=== PATIENT | female | born 1940 | race Caucasian/White ===

== ENCOUNTER 2025-04-25 11:45 | Outpatient (CLI) | payer MEDICARE, SELFPAY ==
--- NOTE | 2025-04-25 13:18 | P.ANES_ITS ---
Anesthesia Charges Start Date/Time Anesthesia Start Date: 04/25/25 Anesthesia Start Time: 12:50 Stop Date/Time Anesthesia Stop Date: 04/25/25 Anesthesia Stop Time: 13:14 Summary Extremes of Age - Over 70 or under 1: FORMULA CLERK Coding CPT Codes CPT Codes: ANES LWR INTST SCR COLSC - 18397 ([id number]) P3 - PATIENT W/SEVERE SYS DISEASE, QZ - FORMULA CLERK SVC W/O LOOM OPERATOR BY Additional Codes: Summary - Extremes of Age - Over 70 or under 1: FORMULA CLERK ([id number])
--- NOTE | 2025-04-25 13:18 | W.ANESCHARGE ---
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
== END 2025-04-25 11:46 | disposition home or self-care (01) ==
LOC: OP CLINIC 11:46
PROVIDERS: PCP Family Medicine; Visit Provider Internal Medicine
DX: Z12.11 Encounter for screening for malignant neoplasm of colon (principal); Z86.0100 Personal history of colon polyps, unspecified; K57.30 Diverticulosis of large intestine without perforation or abscess without bleeding
CPT/HCPCS: 00812; 45378; 99100; J2704

== ENCOUNTER 2025-05-06 10:38 | Emergency (ER) | payer MEDICARE, SELFPAY ==
--- OUTSIDE RECORDS SUMMARY | 2025-05-06 10:41 | XMS_ITS | Clinical Summary ---
Author Organization [employer] [facility] Address [address] [place] [id number] Care Team Providers Care Oracle Bpm Developer Name Role Phone KingCorrieRuss W Unavailable Bessie Braun DO Primary Care Provider [phone] Allergies No known active allergies Medications MULTIVITAMIN TAB take 1 tablet by oral route once daily with food 0 08/22/19 08 Active ZINC 50 MG TAB 2x per week 0 11/01/19 08 Active VITAMIN D 1,000 UNIT CAP Once daily 0 11/07/19 09 Active calcium carbonate (Calcium 500) 500 mg calcium (1,250 mg) tablet Take 1 Tablet (500 mg) by mouth 3 times daily with meals. 0 01/29/20 22 Active acetaminophen (TYLENOL) 325 mg tablet Take 2 Tablets (650 mg) by mouth three times daily. Max acetaminophen dose: 4000mg in 24 hrs. 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 90 Tablet 1 11/20/19 25 Active traZODone 50 mg tabletIndications :Insomnia, unspecified type TAKE ONE TABLET BY MOUTH ONCE DAILY AT BEDTIME NEEDED FOR SLEEP 90 Tablet 2 11/22/19 25 Active omeprazole 20 mg Delayed-Release capsuleIndication s:Gastric reflux Take 1 Capsule (20 mg) by mouth once daily before a meal. Please fill at patient's request. 90 Capsule 2 11/22/19 25 Active clobetasol 0.05 % ointmentIndicatio ns:Lichen sclerosus of vulva Apply peasized amount to labia nightly 60 g 1 12/06/19 Active sertraline 100 mg tabletIndications :Adjustment disorder with depressed mood Take 1.5 Tablets (150 mg) by mouth once daily. 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 Seo History of squamous cell carcinoma 03/30/2021 History of aortic regurgitation 10/01/2020 Overview (10/01/2020): Mild-mod 2017 Erosive gastropathy 10/01/2020 Overview (10/01/2020): Per records from hospital. 2019. Nonbleeding erosive gastropathy Not to use any NSAIDs. Leukopenia 10/01/2020 Overview (07/28/2021): Noted since at least 2018, possibly longer. See 09/2020 office visit Saw hematology 2020 and recommend CBC [id number]. Thought from lisinopril but noted okay to continue. 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 05/10/2012 Vaginal atrophy 03/31/2011 ACP (advance care planning) 03/31/2011 Overview (05/14/2013): discussed today Referred 05/10/2012 Need to address at next office visit. 05/14/2013 Other seborrheic keratosis 03/31/2011 Overview (12/01/2011): 1+ cm lesion right lateral chest wall Personal history of colonic polyps 04/28/2010 Overview (10/01/2020): Colonoscopy 04/2010 normal repeat in 5 years 2016 no polyps Unspecified essential hypertension 10/22/2009 Patellofemoral Pain Syndrome 02/11/2009 Overview (02/11/2009): right Dysphagia, unspecified(787.20) 02/11/2009 Heart murmur 06/18/2008 Overview (06/18/2008): Mild Aortic Insufficiency on Echo 05/2008 Routine general medical exam ination at a health care facility 11/01/2007 Overview (03/31/2011): Nuclear Stress Test negative 2009 Adjustment disorder with depressed mood 11/01/19 08 Mixed hyperlipidemia 11/01/2007 Impaired fasting glucose 11/01/2007 Backache, unspecified 08/22/2007 Overview (11/06/2008): Severe kyphoscoliosis Dyspepsia and other specifie d disorders of function of stomach 08/22/2007 Overview (07/29/2009): EGD 02/2009 reflux improved with Zantac PM Osteoporosis, unspecified 08/22/2007 Overview (10/01/2020): 04/15 Received Reclast at [facility] 06/2011. Again fall 2011 Reclast again fall 2012 Per hospital records: Reclast infusion June 2012, July 2013, Fosamax restarted August 2014, improved to osteopenia by DEXA August 2015. 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 Overview (08/22/2007): with GE reflux Resolved Problems Problem Noted Date Diagnosed Date Resolved Date Headache(784.0) 09/23/2009 10/22/2009 Encounters Date Type Department Care Team Description 04/25/2025 Orders Only [facility] Scanner 1 scan: (1-Ord) [place] 04/25/2025 Orders Only [facility] Scanner 1 scan: (1-Ord) [facility] 03/21/2025 11:40 AM CDT Office Visit [facility] [address] [place] [address] Bessie Braun DO Lump (Umbilical hernia many years, growing); Screening (colonoscopy) 03/20/2025 Travel from Last 3 Months Immunizations Immunization Administration Dates Next Due COVID-19 VACCINE SPIKEVAX (M ODERNA 50MCG/0.5ML) 12YO+ PFS 08/06/2024,09/28/2023 COVID-19 vaccine (Moderna 100mcg/0.5mL) PF, MDV 09/18/2020,08/21/2020 Influenza A (H1N1), Inactivated 07/29/2009 Influenza A (H1N1), Inactiva patricio (Age >=3 Years) 07/29/2009 Influenza, High-dose Inactivated 024,04/10/2020,04/28/2018,04/29,04/22/2016,04/28/2015,03/28/2014 Influenza, High-dose Quadriv alent Inactivated 04/28/2022,05/01/2020 Influenza, IIV3 (Age 6-35 mos) 03/31/2011 Influenza, IIV3 (Age >=3 years) 05/14/20 13,05/10/2012,03/31/2011,04/06,05/06/2009,05/23/2008,05/29/2007 ,05/25/2006,06/23/2005,05/21/2003,05/11 Influenza, Inactivated AIIV4 (Age 65+ Years) Preserv Free 03/24/2023,03/30/2021 Influenza, Inactivated IIV3 (Age 65+ Years) Preserv Free 03/21/2025 Pneumococcal Poly,23-Valent (Pneumovax) 11/01/2007 Pneumococcal conj 13-Valent (Prevnar 13) 08/19/2014 RSV, Recombinant ADJ Reconst ituted (Arexvy 120MCG/0.5mL) 08/21/2024 Td (Age >=7 Years) 10/20/2005 Tdap 05/11/2023,03/31/2011 Zoster (Shingrix-RZV, recombinant) 02/24/2019, Zoster (Zostavax-ZVL, live) 11/03/2006 Family History Medical History Relation Name Comments Blood Disease Father Stanley ?CLL? Diabetes Maternal Grandfather Other Mother Bridget ALS Cancer-breast Paternal Aunt 2 Aunts Anesthesia Problem No Family History Cancer-ovarian No Family History Relation Name Status Comments Brother Stone Alive Father Stanley (Age 92) Hip Fx Maternal Grandfather Mother Bridget (Age 86) ALS Paternal Aunt Social History Tobacco Use Types Packs/Day Years Used Date Smoking Tobacco: Never Smokeless Tobacco: Never Tobacco Cessation:Counseling Given: Yes Alcohol Use Standard Drinks/Week Comments Not Currently 0 (1 standard drink = 0.6 oz pur e alcohol) glass wine monthly PHQ-2 Answer Date Recorded PHQ-2 TOTAL SCORE 6 01/23/2025 Social Connections Answer Date Recorded Do you often feel lonely or isolated from those around you? 0 08/06/2024 Financial Resource Strain Answer Date R ecorded Difficulty of Paying Living Expenses 3 08/06/2024 Difficulty of Paying Living Expenses Not on file 08/06/2024 Food Insecurity Answer Date Recorded Do you worry your food will run out before you are able to buy more? 1 08/06/2024 Transportation Needs Answer Date Record ed Does lack of transportation keep you from medica l appointments? 1 08/06/2024 Does lack of transportation keep you from work, meetings or getting things that you need? 1 08/06/2024 Housing Stability Answer Date Recorded What is your housing situation today? 1 08/06/2024 Utilities Answer Date Recorded Do you have trouble paying f or utilities (for example, heat, electricity, water, phone)? 1 08/06/2024 Comments No Sex and Gender Information Value Date Recorded Sex Assigned at Female 03/29/2021 7:20 PM CDT Legal Sex Female 6:25 AM HELP DESK MANAGER Gender Identity Not on file Sexual Orientation Not on file Occupation Industry Job Start Date Job End Date Retired Not on file Not on file Not on file Obstetrics History Para Term AB IAB SAB Ectopic Multiple Livin g Live Births 3 3 3 Date Outcome GA Total Labor Labor/2nd/3rd Weight Sex Type Anes PTL Evi A1 A5 Name Clin Para Para Para Last Filed Vital Signs Vital Sign Reading Time Taken Comments Blood Pressure 113/71 03/21/2025 11:54 AM CDT Pulse 73 03/21/2025 11:54 AM CDT Temperature 36.8 C (98.3 F) 11/28/2024 2:29 PM CDT Respiratory Rate 18 02/08/2022 12:02 PM CDT Oxygen Saturation 96% 03/21/2025 11:54 AM CDT Inhaled Oxygen Concentration - - Weight 70.8 kg (156 lb) 03/21/2025 11:54 AM CDT Height 153 cm (5' 0.24) 08/06/2024 8:32 AM HELP DESK MANAGER Body Mass Index 30.23 08/06/2024 8:32 AM HELP DESK MANAGER Plan of Treatment Upcoming Encounters Date Type Department Care Team (Late st Contact Info) Description 05/20/2025 11:40 AM HELP DESK MANAGER Office Visit [facility] [address] [place] [address] Bessie Braun DO [address] [place] [address] Health Maintenance Due Date Last Done Comments BMI (ht and wt on same day) for age 18+ 08/06/2025 08/06/2024, 08/04/2023, 08/03/2022, Additional history exists Medicare Wellness for age 65+ 08/07/2025 08/06/2024, 08/04/2023, 08/03/2022, Additional history exists Depression screening for age 12+ 01/23/2026 01/23/2025, 08/06/2024, 08/06/2023, Additional history exists Tetanus booster 05/11/2033 05/11/2023, 03/12, 10/20/2005 Pneumococcal series for age 50+ Completed 08/19/2014, 11/01/2007 Zoster (shingles) series for age 50+ Completed 02/24/2019, 12/20/2018, 11/03/2006 RSV vaccine for adults or Completed 08/21/2024 DEXA/DXA scan for age 65+ Completed 2024, 10/04/2022, 10/01/2020, Additional history exists Influenza Vaccine Completed 03/21/2025, , 03/24/2023, Additional history exists Hepatitis B series for 19+ Aged Out N o longer eligible based on patient's age to complete this topic Procedures Procedure Name Priority Date/Time Associated Diagnosis Comments SCAN-COLONOSCOPY 04/25/2025 12:0 0 AM CDT SCAN-COLONOSCOPY 04/25/2025 12:0 0 AM CDT XR DXA BONE DENSITY 2 SITES AXIAL Routine 10/05/2024 9:12 AM CDT Osteoporosis, unspecified osteoporosis type, unspecified pathological fracture presence from Last 3 Months or Most Recently Relevant to Health Maintenance Results * SCAN-COLONOSCOPY (04/25/2025 12:00 AM CDT) us Scanner OTHER Final Result * SCAN-COLONOSCOPY (04/25/2025 12:00 AM CDT) us Scanner OTHER Final Result * (ABNORMAL) XR DXA BONE DENSITY 2 SITES AXIAL (10/05/2024 9:12 AM CDT) Anatomical Region Laterality Modality Spine, HIPS, HIPL, HIPR Other Impressions 10/05/2024 4:00 PM CDT Osteopenia. RECOMMENDATIONS: The National Osteoporosis Foundation recommends pharmacologic treatment for patients with T-scores of -2.5 or less, patients with prior history of fragility fractures, or patients with 10-year probability of greater than 3% at hips or greater than 20% of suffering major osteoporotic fractures. Recommend continued optimization of calcium and vitamin D intake through dietary means and/or supplementation and regular exercise. Consider pharmacologic therapy for osteopenia with increased fracture risk. Follow-up bone density reading in 2 years if therapy initiated to assess therapeutic efficacy. Montserrat Carter PA-C [facility] 10/05/2024 Narrative 10/05/2024 4:00 PM CDT For Patients: Results are automatically released to your [facility] ([email or web address]) account once available, in compliance with federal regulations. This means that you may see your results before your provider has had a chance to review them. Please allow 2-3 business days for your provider to comment on the results. XR DXA Bone Mineral Density (BMD) EXAM LOCATION: [address] [address] PATIENT NAME: Edel Arita DATE OF : 1940 EXAM DATE: 10/05/2024 REQUESTING PROVIDER: Bessie Braun DO GENDER AT : female HEIGHT: 5' 0.24 (08/06/2024) WEIGHT: 154 lb (08/06/2024) MENOPAUSAL STATUS: Postmenopausal RACE/ETHNICITY: White RISK FACTORS: Family History of Hip Fracture (parental), History of Fragility Fracture (at a major site), and White Race CURRENT MEDICATION FOR BONE LOSS: NONE INDICATION: Osteoporosis, unspecified osteoporosis type, unspecified pathological fracture presence COMPARISON DATE(S): 2020 for spine and 2022 for hips DXA scans are compared to prior studies for a patient only when the two (or more) studies were performed on the same scanner. It is not possible to compare data generated on one scanner to data from another because there are not standards in DXA equipment. This applies even if the two scanners are made by the same stockroom attendant. PROCEDURE: Dual-energy x-ray absorptiometry performed with routine technique. Reporting is completed in the form of a T-score. The T-score represents the standard deviation from peak bone mass based on young healthy adult. A Z-score is used for diagnosis in premenopausal women, and for men under the age of 50. FINDINGS: RESULT LUMBAR SPINE L1 - L4 BMD: 1.172 g/cm2 T-Score: - 0.2 Z-Score: + 1.5 Change from prior in 2020: Increase 5.0%. RESULTS FEMUR Left femoral neck BMD: 0.751 g/cm2 T-Score: - 2.1 Z-Score: + 0.1 Change from prior in 2022: Increase 3.9%. Right femoral neck BMD: 0.805 g/cm2 T-Score: - 1.7 Z-Score: + 0.5 Change from prior in 2022: Decrease 0.6%. Left hip BMD: 0.819 g/cm2 T-Score: - 1.5 Z-Score: + 0.5 Change from prior in 2022: Increase 4.1%. Right hip BMD: 0.896 g/cm2 T-Score: - 0.9 Z-Score: + 1.1 Change from prior in 2022: Increase 1.6%. WHO criteria: Normal: T-score at or above -1 SD Osteopenia: T-score between -1.1 and -2.4 SD Osteoporosis: T-score at or below -2.5 SD FRAX RISK CALCULATION (USED FOR OSTEOPENIA ONLY): 10-year probability of major osteoporotic fracture: 38.5%. 10-year probability of hip fracture: 24.7%. 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
--- OUTSIDE RECORDS SUMMARY | 2025-05-06 10:41 | XMS_ITS | Clinical Summary ---
Author Organization [facility] Address [address] [place] [address] Care Team Providers Care Trace Evidence Technician Name Role Phone Unassigned, Provider Primary Care Provider Unava ilable Source Comments You are receiving this document as you are listed as the primary care provider,follow-up provider, or the patient has been referred to you for consultation.This is in compliance with the Medicare and[facility] EHR Incentive Program,which states Providers who transition their patient to another setting of careor provider of care or refers their patient to another provider of care shouldprovide summary care record for each transition of care or referral. [facility] Allergies No known active allergies Medications No known medications Active Problems No known active problems Social History Tobacco Use Types Packs/Day Years Used Date Smoking Tobacco: Never Smokeless Tobacco: Never Comments Unknown Sex and Gender Information Value Date Recorded Sex Assigned at Not on file Legal Sex Female 4:45 AM CDT Gender Identity Not on file Sexual Orientation Not on file Plan of Treatment Health Maintenance Due Date Last Done Comments Adult Preventive Visit 1960 DTaP/Tdap/Td Vaccine (1 - Tdap) 1961 Pneumococcal Vaccine 50+ Yrs (1 of 1 - PCV) 1992 Zoster/Shingles Vaccine (1 of 2) 1992 Dexa 10/20/2007 RSV Vaccine (1 - 1-dose 75+ series) 2017 COVID-19 Vaccine ( - 2023-2 5 season) 2025 Influenza Vaccine (#1) 2025 HepA Vaccine Aged Out No longer eligi ble based on patient's age to complete this topic HepB Vaccine Aged Out No longer eligi ble based on patient's age to complete this topic Hib Vaccine Aged Out No longer eligi ble based on patient's age to complete this topic IPV (Polio) Vaccine Aged Out No longe r eligible based on patient's age to complete this topic MCV4 Vaccine Aged Out No longer eligi ble based on patient's age to complete this topic Meningococcal B Vaccine Aged Out No l onger eligible based on patient's age to complete this topic Care Teams Trace Evidence Technician Relationship Specialty Start Date End Date Unassigned, Provider [address] [place] [address] PCP - General 07/28/01
--- OUTSIDE RECORDS SUMMARY | 2025-05-06 10:41 | XMS_ITS | Clinical Summary ---
Author Organization [facility] Address [address] [place] [address] Care Team Providers Care Lens Maker Name Role Phone Unavailable Primary Care Provider Unavailabl e Source Comments Patient records contain information from all sites at [facility]. For routine questions regarding patient records, call [phone] during business hours, M-F 8:00 AM - 5:00 PM Central Time. Record requests for emergency care only can be directed to [phone] at any time.[facility] Allergies No known active allergies Medications multivitamin tablet Take 1 tablet by mouth every morning. 08/22/2007 Active omeprazole (PriLOSEC) 20 mg capsule Take 20 mg by mouth every morning. 05/14/2013 Active sertraline (ZOLOFT) 100 mg tablet Take 1 tablet by mouth every morning. 09/27/2017 Active traZODone (DESYREL) 50 mg tablet Take 25-50 mg by mouth as needed. 05/14/2013 Active zinc 50 mg tablet Take 1 tablet by mouth 2 (two) times a week. 11/01/2007 Active acetaminophen (TYLENOL) 500 mg tablet Take 1,000 mg by mouth every 6 (six) hours as needed for pain. 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 Hypertension 10/25/2017 Family History Medical History Relation Name Comments Gestational diabetes Daughter 1 Santa Martins Gestational diabetes Daughter 2 Leas Helms Gestational diabetes Daughter 3 Mlchelle Bumpus Breast cancer (in one breast) Father's Sister 1 Corry Hood Breast cancer (in one breast) Father's Sister 2 Luiz Zuniga Relation Name Status Comments Daughter 1 [place]ins Alive Daughter 2 Lesa Helms Alive Daughter 3 Winifredle Bumpus Alive Father's Sister 1 Corry Hood Alive Father's Sister 2 Vanessa Zuniga Alive Social History Tobacco Use Types Packs/Day Years Used Date Smoking Tobacco: Never Smokeless Tobacco: Never Alcohol Use Standard Drinks/Week Comments Not Currently 0 (1 standard drink = 0.6 oz pur e alcohol) 2 glasses of wine a month [facility] Utilities Answer Date Recorded In the past 12 months has e [email or web address], gas, oil, or water [employer] threatened to shut off services in your home? No 10/18/2024 Hunger Vital Sign Answer Date Recorded Within the past 12 months, y ou worried that your food would run out before you got the money to buy more. Never true 10/19/19 25 Within the past 12 months, t he food you bought just didn't last and you didn't have money to get more. Never true 10/18/2024 PRAPARE - Transportation Answer Date Re corded In the past 12 months, has l ack of transportation kept you from medical appointments or from getting medications? No 10/09 In the past 12 months, has l ack of transportation kept you from meetings, work, or from getting things needed for daily living? No 10/18/2024 Housing Stability Answer Date Recorded What is your living situation today? I have a [facility] place to live 10/18/2024 Education Answer Date Recorded What is the highest level of school you have completed or the highest degree you have received? 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 Pulse 73 10/31/2017 11:30 AM CDT Value from [employer]. Temperature - - Respiratory Rate 16 10/31/2017 8:25 AM CDT Value from [employer]. Oxygen Saturation - - Inhaled Oxygen Concentration - - Weight 69.6 kg (153 lb 7 oz) 10/09/2020 10:55 AM CDT Height 154.8 cm (5' 0.95) 10/09/2020 1 0:55 AM CDT Body Mass Index 29.04 10/09/2020 10:55 AM CDT Plan of Treatment Health Maintenance Due Date Last Done Comments Office Visit for Blood Pressure Check / Re-check 1940 Depression Screening (Annual PHQ-2) 07/11/2024 Fall Risk Screen (Annual) 07/11/2024 Potassium Level 08/04/2024 08/04/2023, 05/0 11/2022, 08/03/2022, Additional history exists Sodium Level 08/04/2024 08/04/2023, 07/12, 07/28/2021 Creatinine Level (Kidney Function Test) 02/15/2025 02/16/2024, 08/04/2023, 11/12/2022, Additional history exists COVID-19 Vaccine ( season) 2025 08/06/2024, 04/02/2024, 09/28/2023, Additional history exists Influenza Vaccine (#1) 2025 , 03/24/2023, 04/28/2022, Additional history exists DTaP,Tdap,and Td Vaccines (3 - Td or Tdap) 05/11/2033 05/11/2023, 03/31/2011, 10/20/2005 Pneumococcal vaccine (50+ years) Completed 08/19/2014, 11/01/2007 Zoster Vaccines Completed 02/24/2019, 12/09, 11/03/2006 RSV vaccine - (32-36 weeks) or 50+ years Completed 08/21/2024 IPV Vaccines Aged Out No longer eligi ble based on patient's age to complete this topic Medical Devices Implanted Type Area Ornamental Iron Worker Device Identifier Shelf Expiration Date Model / Serial / Lot Conversions - Default Historical Implant Device Implanted:2017 (Quantity not on file) Hardware e.g. pins/screws/ rods Description:Device Status Te xt - Hardware. Left Ankle less than 1 year s/p. Pin Thompson Smooth Single End 1 8 - Christiansen [id number] Implanted:Qty: 1 on 10/28/2017 Hardware e.g. pins/screws/ rods Latisha Description:Device Manufactu rer - [place].. Device Status Text - [id number]. Self Tap-Screw 4.5 X 54 - Christiansen [id number] Implanted:Qty: 1 on 10/28/2017 Hardware e.g. pins/screws/ rods Depuy Synthes Description:Device Manufactu rer - Synthes. Device Status Text - [id number]. Standard-Screw Can 16 6.5x 30 - Christiansen [id number] Implanted:Qty: 1 on 10/28/2017 Hardware e.g. pins/screws/ rods Depuy Synthes Description:Device Manufactu rer - Synthes. Device Status Text - [id number]. Standard-Screw Can 16 6.5x 35 - Christiansen [id number] Implanted:Qty: 1 on 10/28/2017 Hardware e.g. pins/screws/ rods Depuy Synthes Description:Device Manufactu rer - Synthes. Device Status Text - [id number]. Standard-Screw Can 16 6.5x 40 - Christiansen [id number] Implanted:Qty: 2 on 10/28/2017 Hardware e.g. pins/screws/ rods Depuy Synthes Description:Device Manufactu rer - Synthes. Device Status Text - [id number]. Syn Washer Canc Screw 6.5 - Christiansen [id number] Implanted:Qty: 1 on 10/28/2017 Hardware e.g. pins/screws/ rods Depuy Synthes Description:Device Manufactu rer - Synthes. Device Status Text - [id number]. 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 See document viewer.
[2025-05-06 10:57] VITALS: BP 144/82; PULSE 75; RESP 18; TEMP 36.9; O2SAT 94; BMI 29.8
--- NOTE | 2025-05-06 11:24 | ED.GENADULT ---
HPI - General Adult General Time Seen by Provider: 11:24 Date Seen: 05/06/25 Chief complaint: Fall/Minor Trauma Stated complaint: Repeated falls Time Seen by Provider: 05/06/25 11:14 Source: patient and RN notes reviewed Mode of arrival: ambulatory Limitations: no limitations History of Present Illness HPI narrative: This 84-year-old female is accompanied in by her friend whom advised her to come in for concern of falling. The friend notes that Edel complained that she felt like she was going to fall. Patient notes that she has been having increasing difficulty getting out of a chair, increased difficulty with falls. She has started physical therapy for gait imbalance, has went about 3 weeks. They have not discussed a cane or walker, she states the physical therapist told her they would get to that. Patient denies any baseline tremors but her friend notes that her hands do shake. She notes no sense of dizziness or spinning sensation, no sense of chest pain or palpitations or heart rhythm disturbance with any of this. She states she started falling about 6 weeks ago. She did hit her head, has a bruise on the front of her head. Does have a bruise on the left hip area but she notes no pain in this extremity with walking at all. Her friend whom resides in the same apartment building did have her use a cane, this is the friends cane. Patient is on no blood thinners. Related Data Home Medications ?Medication ?Instructions ?Recorded ?Confirmed lisinopril 10 mg tablet 10 mg PO DAILY 06/04/23 05/06/25 omeprazole 20 mg capsule,delayed 20 mg PO BID 06/04/23 05/06/25 release sertraline 100 mg tablet 100 mg PO DAILY 06/04/23 05/06/25 trazodone 50 mg tablet 50 mg PO QPM 06/04/23 05/06/25 Previous Rx's ?Medication ?Instructions ?Recorded peg 3350-electrolytes 236 240 ml PO ONCE #4,000 mL 04/04/25 gram-22.74 gram-6.74 gram-5.86 gram solution (Golytely) Allergies Allergy/AdvReac Type Severity Reaction Status Date / Time No Known Drug Allergies Allergy Verified 05/06/25 11:08 Review of Systems Narrative: As per HPI. PFSH PFS Medical History Subconjunctival hemorrhage ?H11.30 - Conjunctival hemorrhage, unspecified eye (ICD-10) Social History Smoking Status: Never smoker How often do you have a drink containing alcohol: never AUDIT-C Alcohol total score: 0 Non-prescribed substance use: denies use Exam Const: Vital Signs, click to edit/add: Vital Signs - 24 hr 05/06/25 10:57 Temperature 98.4 F Pulse Rate [Pulse Oximeter] 75 Respiratory Rate 18 Blood Pressure [Ri ght Upper Arm] 144/82 H Pulse Oximetry 94 Oxygen Delivery Me thod Room Air This 84-year-old female is alert, interactive, no apparent distress. Pupils equal round reactive, sclera clear, conjugate gaze. She has a yellowish peripheral with some central purplish bruising over her right frontal forehead, no open wound. Speech is normal, symmetrical facial function. Neck supple, no adenopathy, no jugular venous distension. Lungs are clear, good air entry, wheezing crackles, no tachypnea. CV regular rate and rhythm, no murmur, normal S1-S2. Abdomen is soft, nontender, nondistended, no organomegaly, rebound or guarding, no masses. She does have left hand worse than right fine resting tremor noted in the fingers. She is able to do finger to nose and hit her terminal target bilaterally. Strength is 5/5 and symmetric through her upper extremities and lower extremities. She has better balance with wide base rather than putting her feet together. Turning does give her little unsteadiness. Documenting provider has reviewed patient's vital signs: yes Course Course ED Course: Will obtain head CT just to rule out any intracranial pathology. Have discussed with patient and her friend that I think this patient ultimately may need to see Neurology which will not happen emergently, we have no Neurology here. As far as her living situation, I understand concerns for safety but patient is not interested in changing her living status at this point. She certainly could use a cane or walker in highly recommend that in the interim until she sees physical therapy again. I will also try to call clinic to talk to her primary. Reevaluation(s) Time of Reevaluation #1: 12:48 Reevaluation #1: Have reviewed normal head CT imaging with patient. She understands that there is no traumatic change, no gross abnormality of the brain. Have discussed her living arrangement, she states she feels safe there. I highly advised her to use a walker or a cane in tell she can talk to physical therapy about what they recommend. Her friend did provide her a cane today. She does not seem like she feels unsafe in her living situation. We discussed using the gait a to help prevent further falls. Plan will be to discharge to home at this time. Consultations Consultation #1: Did speak with Dr. Braun her primary provider. She will get her scheduled for follow-up this week. They will discuss neurology referral, gait aids and home safety/living situation. Time: 11:50 Vital Signs Vital signs: Initial Vital Signs Temperature 98.4 F 05/06/25 10:57 Temperature Source Temporal Artery Scan 05/06/25 10:57 Pulse Rate 75 05/06/25 10:57 Respiratory Rate 18 05/06/25 10:57 Blood Pressure 144/82 H 05/06/25 10:57 Blood Pressure Mean 102 05/06/25 10:57 Blood Pressure Position Sitting 05/06/25 10:57 Pulse Oximetry 94 05/06/25 10:57 Oxygen Delivery Method Room Air 05/06/25 10:57 Vital Signs Temperature 98.4 F 05/06/25 10:57 Pulse Rate 75 05/06/25 10:57 Respiratory Rate 18 05/06/25 10:57 Blood Pressure 144/82 H 05/06/25 10:57 Pulse Oximetry 94 05/06/25 10:57 Oxygen Delivery Method Room Air 05/06/25 10:57 Temperature 98.4 F 05/06/25 10:57 Pulse Rate 75 05/06/25 10:57 Respiratory Rate 18 05/06/25 10:57 Blood Pressure 144/82 H 05/06/25 10:57 Pulse Oximetry 94 05/06/25 10:57 Oxygen Delivery Method Room Air 05/06/25 10:57 Medical Decision Making Imaging Data CT scan - head: Attestation: I have reviewed the pertinent imaging results. Radiologist's impression: Patient: EDEL STEWART Facility:?[facility] Patient ID:?[id number] Site Patient ID:?[id number]. Site :?[id number] Study:?CT-Head w/o-05/06/2025 12:37:22 PM Ordering Physician:Magdalena Burris Final Report: INDICATION: Recent falls, hit head. TECHNIQUE: CT head without contrast. COMPARISON: 02/20/2017. FINDINGS: Brain parenchyma, CSF spaces, and extra-axial spaces: Mild global brain parenchymal volume loss with commensurate sulcal and ventricular enlargement. Areas of mild hypoattenuation within the bilateral periventricular and subcortical white matter, consistent with chronic small vessel ischemic disease.The hightower-white differentiation is normal. No sign of mass, hemorrhage, or midline shift. No hydrocephalus. No extra-axial fluid collection. Skull base and calvarium: The visualized paranasal sinuses demonstrate no acute or significant findings. The mastoid air cells are clear. The visualized orbits are grossly unremarkable. No skull fracture. IMPRESSION: No evidence of an acute intracranial abnormality. Please note that all CT scans at this facility use dose modulation, iterative reconstruction, and/or weight-based dosing when appropriate to reduce radiation dose to as low as reasonably achievable. Dictated by Ramsey Ying MD @ 05/06/2025 12:42:16 PM (Electronic Signature) Discharge Plan Discharge Clinical Impression: Frequent falls Patient Disposition: Home, Self-Care Condition: Stable Instructions: Fall Prevention for Older Adults (ED) Additional Instructions: Continue to work with physical therapy, ask them what they recommend as far as a gait aid. In the meantime, use the cane that your friend provided or find a walker to use all the time for stabilization with walking. The clinic will be contacting you for follow-up appointment and referral to Neurology. Activity Level: Activity as Tolerated Prescriptions: No Action omeprazole 20 mg capsule,delayed release(DR/EC) 20 mg PO BID lisinopril 10 mg tablet 10 mg PO DAILY sertraline 100 mg tablet 100 mg PO DAILY trazodone 50 mg tablet 50 mg PO QPM peg 3350-electrolytes [Golytely] 236-22.74-6.74 -5.86 gram recon soln 240 ml PO ONCE Qty: 4000 0RF Rx Instructions: 4pm day prior to procedure. Drink 8oz glass every 15 minutes until 1/2 of solution is gone. 6 hours prior to procedure drink 8 oz glass every 15 minutes until remaining solution gone. Follow Up/Referrals: Bessie Braun DO [Primary Care Provider, Family Practice] Stand Alone Forms: MyHealth Info Instructions
--- NOTE | 2025-05-06 12:21 | CRLHL7_ITS ---
For Patients: As a result of the Century Cures Act, medical imaging exams and procedure reports are released immediately into your electronic medical record. You may view this report before your referring provider. If you have questions, please contact your health care provider. INDICATION: Recent falls, hit head. TECHNIQUE: CT head without contrast. COMPARISON: 02/20/2017. FINDINGS: Brain parenchyma, CSF spaces, and extra-axial spaces: Mild global brain parenchymal volume loss with commensurate sulcal and ventricular enlargement. Areas of mild hypoattenuation within the bilateral periventricular and subcortical white matter, consistent with chronic small vessel ischemic disease.The hightower-white differentiation is normal. No sign of mass, hemorrhage, or midline shift. No hydrocephalus. No extra-axial fluid collection. Skull base and calvarium: The visualized paranasal sinuses demonstrate no acute or significant findings. The mastoid air cells are clear. The visualized orbits are grossly unremarkable. No skull fracture. IMPRESSION: No evidence of an acute intracranial abnormality. Please note that all CT scans at this facility use dose modulation, iterative reconstruction, and/or weight-based dosing when appropriate to reduce radiation dose to as low as reasonably achievable. Dictated by Ramsey Ying MD @ 05/06/2025 12:42:16 PM (Electronically Signed)
== END 2025-05-06 13:06 | disposition home or self-care (01) ==
PROVIDERS: Emergency Provider Family Medicine; PCP Family Medicine
DX: R26.9 Unspecified abnormalities of gait and mobility (principal); W19.XXXA Unspecified fall, initial encounter
CPT/HCPCS: 70450; 99284

== ENCOUNTER 2025-06-10 08:58 | Outpatient (CLI) | payer MEDICARE, SELFPAY ==
--- NOTE | 2025-06-10 09:15 | CRLHL7_ITS ---
For Patients: As a result of the Century Cures Act, medical imaging exams and procedure reports are released immediately into your electronic medical record. You may view this report before your referring provider. If you have questions, please contact your health care provider. INDICATION: Abnormal gait. Loss of balance. COMPARISON: 05/06/2025. TECHNIQUE: Noncontrast CT head. FINDINGS: Moderate generalized volume loss. Patchy T2/FLAIR signal hyperintensity within the white matter of both cerebral hemispheres and soni are nonspecific and may represent chronic deep white matter small vessel ischemic changes. No intracranial hemorrhage. No abnormal ventricular dilatation. Intracranial vascular flow voids are preserved. No mass effect. No midline shift. No restricted diffusion to suggest acute ischemia. No susceptibility artifact to remote hemorrhage. Bilateral orbits are unremarkable. Normal appearing sella. Visualized paranasal sinuses are unremarkable. IMPRESSION: 1. No acute intracranial abnormality. 2. Moderate generalized cerebral volume loss. Chronic deep white matter small vessel ischemic changes. 3. No acute or chronic intracranial hemorrhage Dictated by Michael Bills MD @ 06/10/2025 2:31:11 PM (Electronically Signed)
== END 2025-06-10 08:59 | disposition home or self-care (01) ==
PROVIDERS: PCP Family Medicine; Visit Provider Psychiatry & Neurology Neurology
DX: I67.82 Cerebral ischemia (principal); G31.9 Degenerative disease of nervous system, unspecified; R26.89 Other abnormalities of gait and mobility
CPT/HCPCS: 70551

== ENCOUNTER 2025-06-23 19:49 | Emergency (ER) | payer MEDICARE, SELFPAY ==
--- OUTSIDE RECORDS SUMMARY | 2025-05-27 09:00 | XMS_ITS | Encounter Summary ---
Author Organization [facility] Address [address] [place] [id number] Care Team Providers Care Pigment Grinder Name Role Phone Md, Not Listed Primary Care Provider Unavailabl e Reason for Visit * ReasonCommentsConsultation Encounter Details DateTypeDepartmentCare Team (Latest Contact Info)Kzlnsghiofz96/17/2025 9:00 AM CSTOffice Visit [facility] [address] [place] [phone] Lexis Garcia PA-C [address] [facility] [address] [place] [id number] Abnormality of gait due to impairment of balance (Primary Dx); Mixed action and resting tremor Social History Tobacco UseTypesPacks/DayYears UsedDateSmoking Tobacco: NeverSmokeless Tobacco: Never Tobacco Cessation:Counseling Given: Not Answered CommentsUnknownSex and Gender InformationValueDate RecordedSex Assigned at BirthNot on fileLegal BwsMigqeg74/26/2021 7:31 PM CDTGender IdentityNot on fileSexual OrientationNot on filedocumented as of this encounter Last Filed Vital Signs Vital SignReadingTime TakenCommentsBlood Pressure--Pulse--Temperature-- Respiratory Rate--Oxygen Saturation--Inhaled Oxygen Concentration--Zwdrzq12.8 kg (145 lb)05/27/2025 8:54 AM NEGDalzfr850.4 cm (5')05/27/2025 8:54 AM CSTBody Mass Index28.32107/27/2024 8:54 AM CSTdocumented in this encounter Patient Instructions * Patient Instructions* Lexis Garcia PA-C - 05/27/2025 9:00 AM GRANTS DIRECTOR Brain MRI ordered. This can be sent to [place]. Follow up after MRI is completed. Please let the MRI department know to send the results and the IMAGES into our imaging center. Send me a Screenmailert message when you get the MRI completed so that we can also call to get the results and the images. Follow up in 2 months. TS DIRECTOR documented in this encounter Progress Notes * Lexis Garcia PA-C - 05/27/2025 9:00 AM CST CHIEF COMPLAINT: Balance impairment, falls, tremors. History of Present Illness Donna Arita is an 84 year old female who presents with tremors and balance issues. She is accompanied by her granddaughter. She has been experiencing tremors in her hands for a couple of years, which have become more noticeable recently. The tremors are most apparent during fine motor tasks such as threading a needle and occur both at rest and during action. Others have begun to notice them more frequently. She feels like others noticed them most when they are at rest, and may be this is a more recent change in her tremor. Balance issues began in February 2025, leading to four falls in the past three to four months. Falls occur when changing direction or bending down, particularly when going down. She does not experiencedizziness or lightheadedness when standing up but feels a sensation of imbalance. She has not fallen in the last three weeks due to being more cautious. Struggling with her balance most if she arms to grab something while she is already walking in different directions. No numbness or tingling in her feet, except for a sensation in her left foot attributed to past ankle surgery. This sensation has been present for about seven years and has not worsened. No tripping or shuffling of her feet. No changes in her ability to smell or taste, and her sleep is typical for her age. She denies being an active sleeper or experiencing hallucinations. She has noticed some memory issues and difficulty finding words, which have been ongoing for a while. She has experienced an increase in urinary incontinence, which is more of a problem than it used javed. No significant changes in her vision, although she wears glasses and has had a recent eye exam indicating her vision is fine. She has a history of scoliosis and has undergone surgeries on her left ankle and leg. She reports asensation of walking on a rolled-up sock in her left foot, which has been consistent since her surgery 7+ years ago She does not smoke or consume alcohol heavily and does not have diabetes. She did bring the letter with her today describing her symptoms, I was able to review this today and I will have this scanned into her chart for review. PHYSICAL EXAMINATION: CONSTITUTIONAL: Patient appears well nourished, well developed and in no apparent discomfort. EYES: EOMs intact. Able to upward gaze. MUSCULOSKELETAL: No joint deformity or swelling. NEUROLOGICAL EXAMINATION: Level of Consciousness: Normal. Orientation: Alert and oriented to time, place and person. Memory: Intact recent and remote memory. Attention span and Concentration: Unremarkable. Language and Speech: Normal (can name, repeat phrases, good spontaneous speech). Fund of Knowledge: Within acceptable range. Cranial Nerves: 2,3,4,5,6,7,8,9,10,11,12 are unremarkable. Sensory: No overt sensory abnormalities to touch, pinprick and vibration and proprioception. Motor: Muscle strength, tone, bulk unremarkable. However, unable to stand out of chair without using her arms. Action induced, high frequency tremor bilateral hands, resting tremor noted in the left hand. Difficulty with finger tapping on the left compared to the right. Coordination: Coordination intact. No clear ataxia or dysmetria on icgimt-mcey-mmtsnm. Balance, Gait and Station: Reduced arm swing, misstep with turning fast, able to tandem gait but with some difficulty, -Romberg. No shuffle noted. Stiff gait. Deep Tendon Reflexes: 2++ bilateral knee jerks with horizontal spread, 2++ right ankle jerk, 2+ left ankle jerk. Plantar response: Flexor bilaterally. Assessment & Plan Ms. Arita is an 84-year-old female presenting today for consultation regarding 3 to 4 months of balance impairment, 4 falls in that time, and worsening tremor that used to be more of action the past several years, but has now been noticing more at rest. Possible differential diagnoses at this time include that of an underlying extrapyramidal disorder (Parkinson's disease versus vascular parkinsonism), essential tremors, cerebellar abnormality as cause for balance difficulties. Patient does have long history of scoliosis, however sensory exam is essentially unremarkable. She does have sensation of a sock balled up in the bottom of her left foot, but states this has been here for at least 7 years ever since her last left ankle surgery, and hasnot gotten worse or changed or spread to the right foot since. TSH was checked recently and within normal limits. We reviewed the following plan today: - Ordered MRI of the brain without contrast to evaluate cerebellum and basal ganglia. - Advised on cautious walking and turning to prevent falls. At her next visit: - If brain MRI shows obvious cause for symptoms, will discuss treatment plan further based on findings. -If brain MRI is unremarkable, we will discuss trial of carbidopa/levodopa. - If no other reason for balance difficulties are noted, could do EMG of the bilateral lower extremities to assess for peripheral polyneuropathy, radiculopathy that could be contributing to sensory deafferentation that could be contributing to some of the balance concerns, but certainly not all of her symptoms. We will follow-up after brain MRI is completed to review results and discuss next I have discussed the above details with Ms. Arita at great length and she expressed understanding. she seemed satisfied with this conversation, and had no further queries as of now. she has our contact information and has been advised to stay in touch with us regarding any other issues that may arise. Thank you for allowing me to participate in Ms. Arita's care. Lexis Garcia PA-C [facility] 10:09 AM 05/27/2025 MIPS 2024: Documentation of current mediations reviewed every visit 2. Does patient use tobacco? No 3. Patient has had two or more falls with no injuries in calendar year 4. Does patient have Dementia? No I spent 67 minutes on the date of the encounter with this patient consisting of activities before, during and after the encounter including time spent: Preparing to see the patient including review of the chart, tests, and/or outside records. Reviewing and verifying information regarding the chief complaint and history already recorded by ancillary staff and/or the patient. Obtaining history and performing medically appropriate evaluation. Counseling the patient regarding the diagnosis, additional diagnostic considerations, possible diagnostic testing, and any potential options for therapy, including conservative/lifestyle measures and pharmacotherapy including risks/benefits, side effects and adverse effects. I also counseled the patient on how to contact me with any questions or concerns, new or worsening symptoms. Ordering medications, tests, and/or procedures, and documenting the chart. Please excuse any typographical errors, as this note was generated using a Voice Recognition Software. I am the single focal point of care for a condition that requires longitudinal relationship and personalized care for condition(s) specified within this medical record TS DIRECTOR documented in this encounter Plan of Treatment Not on file documented as of this encounter Visit Diagnoses Diagnosis Abnormality of gait due to impairment of balance- Primary Mixed action and resting tremor Abnormal involuntary movements documented in this encounter Care Teams Team MemberRelationshipSpecialtyStart DateEnd Date , Not Listed no address PCP - GeneralInternal Xfwksgjj30/29/25documented as of this encounter
--- OUTSIDE RECORDS SUMMARY | 2025-06-23 19:52 | XMS_ITS | Clinical Summary ---
Author Organization [facility] Address [address] [place] [address] Care Team Providers Care Dam Tender Name Role Phone Unavailable Primary Care Provider Unavailabl e Source Comments Patient records contain information from all sites at [facility]. For routine questions regarding patient records, call [phone] during business hours, M-F 8:00 AM - 5:00 PM Central Time. Record requests for emergency care only can be directed to [phone] at any time.[facility] Allergies No known active allergies Medications MedicationSigDispense QuantityRefillsLast FilledStart DateEnd DateStatus multivitamin tablet Take 1 tablet by mouth every morning.08/22/2007ctive omeprazole (PriLOSEC) 20 mg capsule Take 20 mg by mouth every morning.05/14/2013ctive sertraline (ZOLOFT) 100 mg tablet Take 1 tablet by mouth every morning.09/27/2017Active traZODone (DESYREL) 50 mg tablet Take 25-50 mg by mouth as needed.05/14/2013ctive zinc 50 mg tablet Take 1 tablet by mouth 2 (two) times a week.11/01/2007ctive acetaminophen (TYLENOL) 500 mg tablet Take 1,000 mg by mouth every 6 (six) hours as needed for pain. 2 tablets by mouth every 6 hours forpain; do not exceed 4000 mg per 24 hoursActive lisinopril (PRINIVIL,ZESTRIL) 20 mg tablet 12/29/2018Active ketoconazole (NIZORAL) 2 % cream Apply to involved areas on face 1-2 times daily as needed 30 g ctive diclofenac sodium (Voltaren) 1 % gel 2-4g to back, hip thigh qid as needed for pain02/16/2024ctive Active Problems ProblemNoted DateDiagnosed DatePrimary Osteoarthritis Knee Right10/09/2020 Overweight Body Mass Index 25-29.9 Adult10/09/2020rthritis Patellofemoral Right 10/09/20202162Ubmgforcjpji76/17/2018 Family History Medical HistoryRelationNameCommentsGestational diabetesDaughter 1Cynthia Eliezer Gestational diabetesDaughter 2Karen HansonGestational diabetesDaughter 3Mlchelle BumpusBreast cancer (in one breast)Father's Sister 1Doris BradshawBreast cancer (in one breast)Father's Sister 2Florence BlankenburgRelationNameStatusComments Daughter 1Cynthcynthia MartinsAliveDaughter 2Karen HansonAliveDaughter 3Mlchelle BumpusAliveFather's Sister 1Doris BradshawAliveFather's Sister 2Florence BlankenburgAlive Social History Tobacco UseTypesPacks/DayYears UsedDateSmoking Tobacco: NeverSmokeless Tobacco: NeverAlcohol UseStandard Drinks/WeekCommentsNot Currently0 (1 standard drink = 0.6 oz pure alcohol)2 glasses of wine a monthAHC UtilitiesAnswerDate RecordedIn the past 12 months has the [employer], gas, oil, or water [employer] threatened to shut off services in your home?No10/18/2024Hunger Vital SignAnswerDate Recorded Within the past 12 months, you worried that your food would run out before you got the money to buymore.Never true10/18/2024Within the past 12 months, the food you bought just didn't last and you didn't have money to get more.Never true 10/18/2024PRAPARE - TransportationAnswerDate RecordedIn the past 12 months, has lack of transportation kept you from medical appointments or from getting medications?No10/18/2024In the past 12 months, has lack of transportation kept you from meetings, work, or from getting things needed for daily living?No 10/18/2024Housing StabilityAnswerDate RecordedWhat is your living situation today?I have a steady place to live10/18/2024EducationAnswerDate RecordedWhat is the highest level of school you have completed or the highest degree you have received?Associate degree: academic jedglxp09/05/2021CommentsUnknownSex and Gender InformationValueDate RecordedSex Assigned at NykbmEwaigk18/01/2018 1:21 PM CDTLegal KojFqqswo54/02/2017 8:40 PM CSTGender UjjcmoqkCbutqh49/01/2018 1:21 PM CDTSexual FsxnldekindStmcrrva44/01/2018 1:21 PM CDT Last Filed Vital Signs Vital SignReadingTime TakenCommentsBlood Tfppedqb898/8210/31/2017 11:30 AM CDT NIBP - Value from [employer].Aemmw940310/31/2017 11:30 AM CDTValue from [employer]. Temperature--Respiratory Cscj932110/31/2017 8:25 AM CDTValue from [employer].Oxygen Saturation--Inhaled Oxygen Concentration--Suurat19.6 kg (153 lb 7 oz)10/09/2020 10:55 AM VADJjyzzn537.8 cm (5' 0.95)10/09/2020 10:55 AM CDTBody Mass Index29.04 10/09/2020 10:55 AM CDT Plan of Treatment Health MaintenanceDue DateLast DoneCommentsOffice Visit for Blood Pressure Check / Re-check3Depression Screening (Annual PHQ-2)07/11/2024Fall Risk Screen (Annual)07/11/2024Potassium Level/, 11/12/2022, 08/03/2022, Additional history existsSodium Level/, 08/03/2022, 2Creatinine Level (Kidney Function Test)02/15/2025 02/16/2024, 08/04/2023, 11/12/2022, Additional history existsCOVID-19 Vaccine ( season), 04/02/2024, 09/28/2023, Additional history existsInfluenza Vaccine (#1)509/, 03/24/2023, 04/28/2022, Additional history existsDTaP,Tdap,and Td Vaccines (3 - Td or Tdap) 3107/11/2022, 03/31/2011, 10/20/2005Pneumococcal vaccine (50+ years) Tsnkyyjnf47/09/2015, 11/01/2007Zoster SvaxtiacFemthsqoo30/17/2019, 12/20/2018, 11/03/2006RSV vaccine - (32-36 weeks) or 50+ ldeyiAwsshlzfk34/11/2025 IPV VaccinesAged OutNo longer eligible based on patient's age to complete this topic Medical Devices ImplantedTypeAreaManufacturerDevice IdentifierShelf Expiration DateModel / Serial / LotConversions - Default Historical Implant Device Implanted:10/05/2017 (Quantity not on file)Hardware e.g. pins/screws/rods Description:Device Status Text - Hardware. Left Ankle less than 1 year s/p.Pin Thompson Smooth Single End 1 8 - Christiansen [id number] Implanted:Qty: 1 on 10/28/2017Hardware e.g. pins/screws/rodsStrykerDescription: Device [employer] Operator - GetNotes.. Device Status Text - [id number].Self Tap-Screw 4.5 X 54 - [place]en [id number] Implanted:Qty: 1 on 10/28/2017Hardware e.g. pins/screws/rodsDepuy Synthes Description:Device [employer]r [employer] Operator - Synthes. Device Status Text - [id number]. Standard-Screw Can 16 6.5x 30 - Christiansen [id number] Implanted:Qty: 1 on 10/28/2017Hardware e.g. pins/screws/rodsDepuy Synthes Description:Device [employer]r [employer] Operator - Synthes. Device Status Text - [id number]. Standard-Screw Can 16 6.5x 35 - Christiansen [id number] Implanted:Qty: 1 on 10/28/2017Hardware e.g. pins/screws/rodsDepuy Synthes Description:Device [employer]r [employer] Operator - Synthes. Device Status Text - [id number]. Standard-Screw Can 16 6.5x 40 - [place]en [id number] Implanted:Qty: 2 on 10/28/2017Hardware e.g. pins/screws/rodsDepuy Synthes Description:Device [employer]r [employer] Operator - Synthes. Device Status Text - [id number]. Syn Washer Canc Screw 6.5 - [place]en [id number] Implanted:Qty: 1 on 10/28/2017Hardware e.g. pins/screws/rodsDepuy Synthes Description:Device [employer]r [employer] Operator - Synthes. Device Status Text - [id number]. Insurance Advance Directives For more information, please contact: [phone] TypeDate RecordedPatient RepresentativeExplanationAdvance Directives10/28/2017 12:00 AMLegacy document. See document viewer.
--- OUTSIDE RECORDS SUMMARY | 2025-06-23 19:52 | XMS_ITS | Clinical Summary ---
Author Organization [facility] Address [address], [place] [address] Care Team Providers Care Steam Box Tender Name Role Phone Unassigned, Provider Primary Care Provider Unava ilable Source Comments You are receiving this document as you are listed as the primary care provider,follow-up provider, or the patient has been referred to you for consultation.This is in compliance with the Medicare and[facility] EHR Incentive Program,which states Providers who transition their patient to another setting of careor provider of care or refers their patient to another provider of care shouldprovide summary care record for each transition of care or referral. [facility] Allergies No known active allergies Medications No known medications Active Problems No known active problems Social History Tobacco UseTypesPacks/DayYears UsedDateSmoking Tobacco: NeverSmokeless Tobacco: NeverCommentsUnknownSex and Gender InformationValueDate RecordedSex Assigned at BirthNot on fileLegal FghToecyc32/10/2012 4:45 AM CDTGender Identity Not on fileSexual OrientationNot on file Plan of Treatment Health MaintenanceDue DateLast DoneCommentsAdult Preventive Visit1960 DTaP/Tdap/Td Vaccine (1 - Tdap)2Pneumococcal Vaccine 50+ Yrs (1 of 1 - PCV)1992Zoster/Shingles Vaccine (1 of 2)1992Dexa10/20/2007RSV Vaccine (1 - 1-dose 75+ series)2017COVID-19 Vaccine (1 - 2024-26 season) 2025Influenza Vaccine (#1)2025HepA VaccineAged OutNo longer eligible based on patient's age to complete this topicHepB VaccineAged OutNo longer eligible based on patient's age to complete this topicHib VaccineAged OutNo longer eligible based on patient's age to complete this topicIPV (Polio) Vaccine Aged OutNo longer eligible based on patient's age to complete this topicMCV4 VaccineAged OutNo longer eligible based on patient's age to complete this topic Meningococcal B VaccineAged OutNo longer eligible based on patient's age to complete this topic Care Teams Team MemberRelationshipSpecialtyStart DateEnd Date Unassigned, Provider [address] [place] [id number] PCP - General07/28/01
--- OUTSIDE RECORDS SUMMARY | 2025-06-23 19:52 | XMS_ITS | Clinical Summary ---
Author Organization [facility] Address [address] [place] [address] Care Team Providers Care Traffic Investigator Name Role Phone Md, Not Listed Primary Care Provider Unavailabl e Allergies No known active allergies Medications MedicationSigDispense QuantityRefillsLast FilledStart DateEnd DateStatus acetaminophen (TYLENOL) 500 mg oral tablet Take 2 tablets (1,000 mg) by mouth every 6 (six) hours as needed.Active lisinopriL (PRINIVIL) 10 mg oral tablet Take 1 tablet (10 mg) by mouth Daily.5Active omeprazole (PRILOSEC) 20 mg oral delayed release capsule Take 1 capsule (20 mg) by mouth Daily.5Active sertraline (ZOLOFT) 100 mg oral tablet Take 1.5 tablets (150 mg) by mouth Daily.5Active traZODone (DESYREL) 50 mg oral tablet TAKE ONE TABLET BY MOUTH ONCE DAILY AT BEDTIME NEEDED FOR SLEEP11/21/2024 Active Active Problems ProblemNoted DateDiagnosed WppqTammnfernrradddb62/24/2023Squamous cell cancer of skin of hand04/13/2021 Overview (05/27/2025): SKIN, LEFT HAND, BIOPSY: Invasive squamous cell carcinoma: Dr. Seo History of squamous cell vgirilovr78/20/2021rthritis of knee10/09/2020rosive wmkseuasgpt67/24/2021 Overview (05/27/2025): Per records from hospital. 2019. Nonbleeding erosive gastropathy Not to use any NSAIDs. History of aortic aginqckcfanqj46/ Overview (05/27/2025): Mild-mod 2017 Knaofedrtm93/24/2021 Overview (05/27/2025): Noted since at least 2018, possibly longer. See 09/2020 office visit Saw hematology 2020 and recommend CBC k7llqqht. Thought from lisinopril but noted okay to continue. Ankle pain05/29/20137112Paghpiexdownbep50/04/2013 Overview (05/27/2025): Patient will take full dose Trazodone and we have added Triamcinalone 0.025 % Lotion Trigger finger, uoarkizl27/31/2012 Overview (05/27/2025): Right long finger; had seen Dr Daquan Miller: Improved after injection for approximately 4 months; now able to get along well with a splint. 05/10/2012 Other seborrheic vgatnnwwt98/21/2011 Overview (05/27/2025): 1+ cm lesion right lateral chest wall Vaginal cyrhdkk5803/31/2011History of colonic mbmtrm8704/28/2010 Overview (05/27/2025): Colonoscopy 04/2010 normal repeat in 5 years 2016 no polyps Essential qbrwnhqgscit62/14/4465Qofgcshsm17/04/2009Patellofemoral pain syndrome 02/11/2009 Overview (05/27/2025): Right knee Heart sdortv2008/19/2007 Overview (05/27/2025): Mild Aortic Insufficiency on Echo 05/2008 Adjustment disorder with depressed mood11/01/2007Impaired fasting glucose 11/01/2007Mixed zdioletovmxfsk53/23/7778Bybnuyhr29/12/2008 Overview (05/27/2025): Severe kyphoscoliosis 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 Again fall 2011 Reclast again fall 2012 Per hospital records: Reclast infusion June 2012, July 2013, Fosamax restarted August 2014, improved to osteopenia by DEXA August 2015. Fosamax drug holiday started August 2015 Encounters DateTypeDepartmentCare IkivLezyvgizlsi11/01/2025Order-Scan [address] [place] [address] Reported, Patient 05/27/2025 9:00 AM CSTOffice Visit [address] [place] [address] Lexis Garcia, PAKoffiC Abnormality of gait due to impairment of balance (Primary Dx); Mixed action and resting tremorfrom Last 3 Months Social History Tobacco UseTypesPacks/DayYears UsedDateSmoking Tobacco: NeverSmokeless Tobacco: Never Tobacco Cessation:Counseling Given: Not Answered CommentsUnknownSex and Gender InformationValueDate RecordedSex Assigned at BirthNot on fileLegal TxiTptmdz39/26/2021 7:31 PM CDTGender IdentityNot on fileSexual OrientationNot on file Last Filed Vital Signs Vital SignReadingTime TakenCommentsBlood Pressure--Pulse--Temperature-- Respiratory Rate--Oxygen Saturation--Inhaled Oxygen Concentration--Beaiiq55.8 kg (145 lb)05/27/2025 8:54 AM UORDupikd853.4 cm (5')05/27/2025 8:54 AM CSTBody Mass Index28.32107/27/2024 8: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 Plan of Treatment Health MaintenanceDue DateLast MgqhRmemieyuHispeiwsawc43/11/1941Medicare Wellness Visit3Depression Assessment (PHQ-2)10/20/1941Yearly Review of HCD1992COVID-19 Vaccine (2024- season)609/, 08/06/2024, 04/02/2024, Additional history existsOsteoporosis Screening 703/, 10/04/2022, 10/01/2020, Additional history existsAdult Tetanus Cxxkfem15/01/21976607/11/2022, 03/31/2011, 10/20/2005Pneumococcal 50+ TnmxgDxbxmylkt14/09/2015, 11/01/2007Zoster GslwhbvObrmrueky34/17/2019, 12/20/2018, 11/03/2006RSV VcfnylhwGojppcivr11/11/2025Influenza VaccineCompleted 03/21/2025, 04/02/2024, 03/24/2023, Additional history existsMeningococcal B VaccineAged OutNo longer eligible based on patient's age to complete this topic Procedures Procedure NamePriorityDate/TimeAssociated DiagnosisCommentsSCANNED RADIOLOGY Zahxmxp0506/10/2025 2:38 PM CSTfrom Last 3 Months Results * SCANNED RADIOLOGY (06/10/2025 2:38 PM BUILD AND DEPLOYMENT ENGINEER)Anatomical RegionLateralityModality Other Narrative Authorizing ProviderResult TypeResult StatusPatient ReportedXRAY ORDERABLEFinal Result from Last 3 Months Insurance Care Teams Team MemberRelationshipSpecialtyStart DateEnd Date , Not Listed no address PCP - GeneralInternal Mjildsvt43/29/25
--- OUTSIDE RECORDS SUMMARY | 2025-06-23 19:52 | XMS_ITS | Clinical Summary ---
Author Organization [facility] Address [address] [place] [address] Care Team Providers Care Import Customer Service Manager Name Role Phone Russ King Gama Unavailable [phone] Bessie Braun DO Primary Care Provider [phone] Allergies No known active allergies Medications MedicationSigDispense QuantityRefillsLast FilledStart DateEnd DateStatus MULTIVITAMIN TAB take 1 tablet by oral route once daily with pzzi742ctive ZINC 50 MG TAB 2x per jyxv212ctive VITAMIN D 1,000 UNIT CAP Once pckfd858ctive calcium carbonate (Calcium 500) 500 mg calcium (1,250 mg) tablet Take 1 Tablet (500 mg) by mouth 3 times daily with meals.ctive acetaminophen (TYLENOL) 325 mg tablet Take 2 Tablets (650 mg) by mouth three times daily. Max acetaminophen dose: 4000mg in 24 hrs.ctive diclofenac topical (VOLTAREN) 1 % gel Indications:Scoliosis of thoracolumbar spine, unspecified scoliosis type, Osteoarthritis of spine with radiculopathy, lumbar region2-4g to back, hip thigh qid as needed for pain 450 g 02/16/2024ctive traZODone 50 mg tablet Indications:Insomnia, unspecified typeTAKE ONE TABLET BY MOUTH ONCE DAILY AT BEDTIME NEEDED FOR SLEEP 90 Tablet 5Active omeprazole 20 mg Delayed-Release capsule Indications:Gastric refluxTake 1 Capsule (20 mg) by mouth once daily before a meal. Please fill at patient's request. 90 Capsule 5Active clobetasol 0.05 % ointment Indications:Lichen sclerosus of vulvaApply peasized amount to labia nightly 60 g 5Active sertraline 100 mg tablet Indications:Adjustment disorder with depressed moodTake 1.5 Tablets (150 mg) by mouth once daily. 135 Tablet 5Active Walker - 4 wheels Indications:Impairment of balanceFor home use. Length of need: lifetime 1 Each 5Active lisinopriL (PRINIVIL; ZESTRIL) 10 mg tablet Indications:HTN (hypertension)TAKE ONE TABLET BY MOUTH ONCE DAILY 90 Tablet 5Active Active Problems ProblemNoted DateDiagnosed DateDNR (do not resuscitate)08/06/2024Decreased platelet count08/03/2022Other qvfyavukkkz61/16/2022quamous cell cancer of skin of hand04/13/2021 Overview (04/13/2021): SKIN, LEFT HAND, BIOPSY: Invasive squamous cell carcinoma: Dr. Seo History of squamous cell fdrxbjmif31/20/2021History of aortic regurgitation 10/01/2020 Overview (10/01/2020): Mild-mod 2017 Erosive eamtxcgqdcd80/24/2021 Overview (10/01/2020): Per records from hospital. 2019. Nonbleeding erosive gastropathy Not to use any NSAIDs. Iijaaeqdqm38/24/2021 Overview (07/28/2021): Noted since at least 2018, possibly longer. See 09/2020 office visit Saw hematology 2020 and recommend CBC n3lkptpm. Thought from lisinopril but noted okay to continue. DJD (degenerative joint disease), ankle and foot12/15/2014nkle pain05/29/2013 Patella-femoral uuwarmzx21/13/2013 Overview (05/23/2013): Right knee Btkbmtweqygqiel19/04/2013 Overview (05/14/2013): Patient will take full dose Trazodone and we have added Triamcinalone 0.025 % Lotion Trigger finger (acquired)05/10/2012 Overview (05/10/2012): Right long finger; had seen Dr Daquan Miller: Improved after injection for approximately 4 months; now able to get along well with a splint. 05/10/2012 Vaginal lofikec1003/31/2011CP (advance care planning)03/31/2011 Overview (05/14/2013): discussed today Referred 05/10/2012 Need to address at next office visit. 05/14/2013 Other seborrheic enaorwbfm08/21/2011 Overview (12/01/2011): 1+ cm lesion right lateral chest wall Personal history of colonic cddurn0704/28/2010 Overview (10/01/2020): Colonoscopy 04/2010 normal repeat in 5 years 2016 no polyps Unspecified essential vutfzvzlkxxm60/14/2010Patellofemoral Pain Syndrome 02/11/2009 Overview (02/11/2009): right Dysphagia, unspecified(787.20)02/11/2009Heart odtvgd0208/19/2007 Overview (06/18/2008): Mild Aortic Insufficiency on Echo 05/2008 Routine general medical examination at a health care gdajdrjz99/23/2008 Overview (03/31/2011): Nuclear Stress Test negative 2009 Adjustment disorder with depressed mood11/01/2007Mixed hprsmmomdzshcz32/23/2008 Impaired fasting wvygyzv9111/01/2007ackache, cxxfdvpkkun49/12/2008 Overview (11/06/2008): Severe kyphoscoliosis Dyspepsia and other specified disorders of function of vncupvj3708/22/2007 Overview (07/29/2009): EGD 02/2009 reflux improved with Zantac PM Osteoporosis, vdicnslcxvt05/12/2008 Overview (10/01/2020): 04/15 Received Reclast at [facility] 06/2011. Again fall 2011 Reclast again fall 2012 Per hospital records: Reclast infusion June 2012, July 2013, Fosamax restarted August 2014, improved to osteopenia by DEXA August 2015. Fosamax drug holiday started August 2015 Congenital hiatus gtdmwu4108/22/2007 Overview (08/22/2007): with GE reflux Resolved Problems ProblemNoted DateDiagnosed DateResolved DateHeadache(784.0) Encounters DateTypeDepartmentCare YxdcHdgsoilikzh15/14/2025Nurse Triage [facility] [address] [place] [address] Bessie Braun, Elevated blood eeqaypnx17/03/2025Telephone [facility] [address] [place] [address] Bessie Braun DO Concerns (Nose Bleed)06/10/2025Orders Only [facility] Scanner 1 scan: (1-Ord) [facility], MR HEAD/BRAIN WO CON, Transcribe Orders [facility] [place] [phone] Lexis Garcia PA-C 05/15/2025Refill [facility] [address] [place] [address] Bessie Braun DO Refill Request (Lisinopril)05/08/2025 9:35 AM CDTOffice Visit [facility] [address] [place] [address] Bessie Braun DO ER Follow up05/08/20259935Agptzk08/27/2025Orders Only [facility] Scanner 1 scan: (1-Ord) [place], CT HEAD/BRAIN WO CON, 51Orders Only [facility] Scanner 1 scan: (1-Ord) EYPCAHOMJJ07/16/2025Orders Only [facility] Scanner 1 scan: (1-Ord) [facility] Months Immunizations ImmunizationAdministration DatesNext DueCOVID-19 VACCINE SPIKEVAX (MODERNA 50MCG/0.5ML) 12YO+ PFS08/06/2024,4COVID-19 vaccine (Moderna 100mcg/0.5mL) PF, MDV09/18/2020,08/21/2020Influenza A (H1N1), Inactivated 07/29/2009Influenza A (H1N1), Inactivated (Age >=3 Years)07/29/2009Influenza, High-dose Byculgdunmi38/23/2024,04/10/2020,04/28/2018,04/29/2017,04/22/2016, 04/28/2015,03/28/2014Influenza, High-dose Quadrivalent Kquvpvjibse55/19/2022, 05/01/2020Influenza, IIV3 (Age 6-35 mos)03/31/2011Influenza, IIV3 (Age >=3 years)05/14/2013,05/10/2012,03/31/2011,04/06/2010,05/06/2009,05/23/2008, 05/29/2007,05/25/2006,06/23/2005,05/21/2003,05/23/2002Influenza, Inactivated AIIV4 (Age 65+ Years) Preserv Free03/24/2023,03/30/2021Influenza, Inactivated IIV3 (Age 65+ Years) Preserv Free03/21/2025Pneumococcal Poly,23-Valent (Pneumovax)11/01/2007Pneumococcal conj 13-Valent (Prevnar 13)08/19/2014RSV, Recombinant ADJ Reconstituted (Arexvy 120MCG/0.5mL)08/21/2024Td (Age >=7 Years) 10/20/2005Tdap107/11/2022,03/31/2011Zoster (Shingrix-RZV, recombinant)02/24/2019, 12/20/2018Zoster (Zostavax-ZVL, live)11/03/2006 Family History Medical HistoryRelationNameCommentsBlood DiseaseFatherRobert?CLL?Diabetes Maternal GrandfatherOtherMotherAlmaALSCancer-breastPaternal Aunt2 Aunts Anesthesia ProblemNo Family HistoryCancer-ovarianNo Family HistoryRelationName StatusCommentsBrotherEdwinAliveFatherRobertDeceased (Age 92)Hip FxMaternal GrandfatherMotherAlmaDeceased (Age 86)ALSPaternal Aunt Social History Tobacco UseTypesPacks/DayYears UsedDateSmoking Tobacco: NeverSmokeless Tobacco: Never Tobacco Cessation:Counseling Given: Yes Alcohol UseStandard Drinks/WeekCommentsNot Currently0 (1 standard drink = 0.6 oz pure alcohol)glass wine monthlyPHQ-2AnswerDate RecordedPHQ-2 TOTAL SCORE6 01/23/2025Social ConnectionsAnswerDate RecordedDo you often feel lonely or isolated from those around you?lcohol UseAnswerDate RecordedHow often do you have a drink containing alcohol?How many drinks containing alcohol do you have on a typical day when you are drinking?0 05/08/2025How often do you have five or more drinks on one occasion? Financial Resource StrainAnswerDate RecordedDifficulty of Paying Living Expenses Difficulty of Paying Living ExpensesNot on file08/06/2024Food InsecurityAnswerDate RecordedDo you worry your food will run out before you are able to buy more?Transportation NeedsAnswerDate RecordedDoes lack of transportation keep you from medical appointments?Does lack of transportation keep you from work, meetings or getting things that you need?1 08/06/2024Housing StabilityAnswerDate RecordedWhat is your housing situation today?UtilitiesAnswerDate RecordedDo you have trouble paying for utilities (for example, heat, electricity, water, phone)? CommentsNoSex and Gender InformationValueDate RecordedSex Assigned at Lhdzyr2303/29/2021 7:20 PM CDTLegal JvwWpycfq17/14/2013 6:25 AM CSTGender Identity Not on fileSexual OrientationNot on fileOccupationIndustryJob Start DateJob End DateRetiredNot on fileNot on fileNot on file Obstetrics History GravidaParaTermPretermABIABSABEctopicMultipleLivingLive Agsfvu237OrlxFvrggpxGN Total LaborLabor/2nd/4xiTnjfreWzuYhbbVpsxWOCTabM3M8UxkxJujuNhwcTrcoTyda Last Filed Vital Signs Vital SignReadingTime TakenCommentsBlood Ugwdwmbi220/6905/08/2025 9:35 AM CDT Dulpl541905/08/2025 9:35 AM XBDLjugnnozusr10.8 ??C (98.3 ??F)11/28/2024 2:29 PM CDTRespiratory Rpwa669702/08/2022 12:02 PM CDTOxygen Muyqupvghd49%05/08/2025 9:35 AM CDTInhaled Oxygen Concentration--Flpdrw61.9 kg (152 lb)05/08/2025 9:35 AM CDT Dtrphf535 cm (5' 0.24)08/06/2024 8:32 AM CSTBody Mass Index29.45008/06/2024 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 Plan of Treatment DateTypeDepartmentCare Team (Latest Contact Info)Ehhsnwhwiob64/29/2026 2:20 PM CSTOffice Visit [facility] [address] [place] [address] Bessie Braun DO [address] [place] [address] Health MaintenanceDue DateLast DoneCommentsCOVID-19 vaccine series ( season)5008/06/2024, 04/02/2024, 09/28/2023, Additional history exists BMI (ht and wt on same day) for age 18+, 08/04/2023, 08/03/2022, Additional history existsMedicare Wellness for age 65+08/07/2025 08/06/2024, 08/04/2023, 08/03/2022, Additional history existsDepression screening for age 12+607/, 08/06/2024, 08/06/2023, Additional history existsTetanus xcftill94/01/894311/07/2022, 03/31/2011, 10/20/2005 Pneumococcal series for age 50+Nqgeiferr50/09/2015, 11/01/2007Zoster (shingles) series for age 50+Pavdsgrht89/17/2019, 12/20/2018, 11/03/2006RSV vaccine for adults or bopfqpmauBtpndzfyr70/11/2025DEXA/DXA scan for age 65+Completed 10/05/2024, 10/04/2022, 10/01/2020, Additional history existsInfluenza Vaccine Sctibcnpt16/11/2025, 04/02/2024, 03/24/2023, Additional history existsHepatitis B series for 19+Aged OutNo longer eligible based on patient's age to complete this topic Procedures Procedure NamePriorityDate/TimeAssociated DiagnosisCommentsSCAN-MRI KPZIJPGGHATZIT29/01/2025 12:00 AM CSTSCAN-CT GNGKUTZYGRNHUR89/27/2025 12:00 AM CDTSCAN-OEKALKGFNBS74/16/2025 12:00 AM CDT SCAN-NTWPENXXEYO81/16/2025 12:00 AM CDT XR DXA BONE DENSITY 2 SITES XMKVYWielwme42/28/2025 9:12 AM CDT Osteoporosis, unspecified osteoporosis type, unspecified pathological fracture presence from Last 3 Months or Most Recently Relevant to Health Maintenance Results * SCAN-MRI INTERPRETATION (06/10/2025 12:00 AM ADDICTION TREATMENT COUNSELOR)Anatomical RegionLaterality ModalityOther Narrative Authorizing ProviderResult TypeResult StatusScannerOTHERFinal Result * SCAN-CT INTERPRETATION (05/06/2025 12:00 AM CDT)Anatomical RegionLaterality ModalityOther Narrative Authorizing ProviderResult TypeResult StatusScannerOTHERFinal Result * SCAN-COLONOSCOPY (04/25/2025 12:00 AM CDT) Narrative Authorizing ProviderResult TypeResult StatusScannerOTHERFinal Result * SCAN-COLONOSCOPY (04/25/2025 12:00 AM CDT) Narrative Authorizing ProviderResult TypeResult StatusScannerOTHERFinal Result * (ABNORMAL) XR DXA BONE DENSITY 2 SITES AXIAL (10/05/2024 9:12 AM CDT) Anatomical RegionLateralityModalitySpine, HIPS, HIPL, HIPROtherSpecimen (Source)Anatomical Location / LateralityCollection Method / VolumeCollection TimeReceived Time Impressions 10/05/2024 4:00 PM CDT Osteopenia. RECOMMENDATIONS: [...] to assess therapeutic efficacy. Montserrat Carter PA-C [facility] 10/05/2024 Narrative 10/05/2024 4:00 PM CDT For Patients: Results are automatically released to your [facility]) account once available, in compliance with federal regulations. This means that you may see your results before your provider has had a chance to review them. Please allow 2-3 business days for your provider to comment on the results. XR DXA Bone Mineral Density (BMD) EXAM LOCATION: [facility] [address] [facility] [address] PATIENT NAME: Edel Arita DATE OF : 1940 EXAM DATE: 10/05/2024 REQUESTING PROVIDER: Bessie Braun, DO GENDER AT : female HEIGHT: 5' 0.24 (08/06/2024) WEIGHT: ??154 lb (08/06/2024) MENOPAUSAL STATUS: Postmenopausal RACE/ETHNICITY: White RISK FACTORS: Family History of Hip Fracture (parental), History of Fragility Fracture (at a major site), and White Race CURRENT MEDICATION FOR BONE LOSS: NONE INDICATION: Osteoporosis, unspecified osteoporosis type, unspecified pathological fracture presence COMPARISON DATE(S): ??2020 for spine and 2022 for hips DXA [...] two scanners are made by the same services tech. PROCEDURE: Dual-energy x-ray absorptiometry performed with routine [...] + 1.5 Change from prior in 2020: ??Increase 5.0%. RESULTS FEMUR Left femoral neck BMD: 0.751 g/cm2 T-Score: - 2.1 Z-Score: + 0.1 Change from prior in 2022: ??Increase 3.9%. Right femoral neck BMD: 0.805 g/cm2 T-Score: - 1.7 Z-Score: + 0.5 Change from prior in 2022: ??Decrease 0.6%. Left hip BMD: 0.819 g/cm2 T-Score: - 1.5 Z-Score: + 0.5 Change from prior in 2022: ??Increase 4.1%. Right hip BMD: 0.896 g/cm2 T-Score: - 0.9 Z-Score: + 1.1 Change from prior in 2022: ??Increase 1.6%. WHO criteria: Normal: T-score at or above -1 SD Osteopenia: T-score between -1.1 and -2.4 SD Osteoporosis: T-score at or below -2.5 SD FRAX RISK CALCULATION (USED FOR OSTEOPENIA ONLY): 10-year probability of major osteoporotic fracture: 38.5%. 10-year probability of hip fracture: 24.7%. Authorizing ProviderResult TypeResult StatusHeather Vanita Braun DODEXAFinal Result from Last 3 Months or Most Recently Relevant to Health Maintenance Insurance * Guarantor: Edel Arita EAccount TypeRelation to PatientDate of PhoneBilling AddressPersonal/RbrghuNums87/11/1941 [phone] [facility] [place] [phone] Advance Directives TypeDate RecordedPatient RepresentativeExplanationHealthcare Directive08/28/2024 3:11 PMsigned 08/08/24 Care Teams Team MemberRelationshipSpecialtyStart DateEnd Date Bessie Braun DO [address] [place] [address] PCP - GeneralFamily Practice11/26/20 Russ King [address] [place] [address] Iisdgihothi24/31/12
--- OUTSIDE RECORDS SUMMARY | 2025-06-23 19:52 | XMS_ITS | Encounter Summary ---
Author Organization [facility] Address [address] [place] [address] Care Team Providers Care Student Teaching Coordinator Name Role Phone Md, Not Listed Primary Care Provider Unavailabl e Encounter Details DateTypeDepartmentCare Team (Latest Contact Info)Zmimlqfpjxi32/01/2025Order-Scan [facility] [address] [place] [address] Reported, Patient Social History Tobacco UseTypesPacks/DayYears UsedDateSmoking Tobacco: NeverSmokeless Tobacco: NeverCommentsUnknownSex and Gender InformationValueDate RecordedSex Assigned at BirthNot on fileLegal UdhWdyhtr72/26/2021 7:31 PM CDTGender Identity Not on fileSexual OrientationNot on filedocumented as of this encounter Plan of Treatment Not on file documented as of this encounter Procedures Procedure NamePriorityDate/TimeAssociated DiagnosisCommentsSCANNED RADIOLOGY Bcliysy2206/10/2025 2:38 PM CSTdocumented in this encounter Results * SCANNED RADIOLOGY (06/10/2025 2:38 PM COPPERSMITH HELPER)Anatomical RegionLateralityModality Other Narrative Authorizing ProviderResult TypeResult StatusPatient ReportedXRAY ORDERABLEFinal Result documented in this encounter Visit Diagnoses Not on filedocumented in this encounter Care Teams Team MemberRelationshipSpecialtyStart DateEnd Date , Not Listed no address PCP - GeneralInternal Mwvsdxes25/29/25documented as of this encounter
[2025-06-23 21:09] VITALS: BP 201/74; PULSE 82; RESP 16; TEMP 36.9; O2SAT 98; BMI 24.9
--- NOTE | 2025-06-23 21:30 | ED.GENADULT ---
HPI - General Adult General Chief complaint: Hypertension Stated complaint: High Blood Pressure Time Seen by Provider: 06/23/25 21:26 History of Present Illness HPI narrative: Pt here with friend, concerned because her BP is always in 120 range and for the last few days it has been 200 range systolic . Pt states she has no neuro signs or symptoms except blurred vision and she can't quite define it but she feels off. She also recently had an MRI completed and she is waiting for results, the MRI was done because she has a falling feeling everytime she turns left. 84-year-old woman presenting to the emergency department concern of elevated blood pressure. Headache. Has had some blurred vision recently as well in generally just feels ?off?. Notes well controlled blood pressure for a long time with lisinopril. Last few days has been noting in the 200 range. She is not short of breath than without chest pain. Has had a recent MRI of her brain due to some sense of discoordination or falling feeling whenever she is turning left. I do review this brain MRI results. Denies recent EKG. Not able to locate any in our record either. I am able to locate results also of echocardiogram from 2017 which showed mildly enlarged right atrium. Ventricles were normal. EF 63%. Brain MRI reviewed from June 10 without significant findings. See radiology over-read below INDICATION: Abnormal gait. Loss of balance. COMPARISON: 05/06/2025. TECHNIQUE: Noncontrast CT head. FINDINGS: Moderate generalized volume loss. Patchy T2/FLAIR signal hyperintensity within the white matter of both cerebral hemispheres and soni are nonspecific and may represent chronic deep white matter small vessel ischemic changes. No intracranial hemorrhage. No abnormal ventricular dilatation. Intracranial vascular flow voids are preserved. No mass effect. No midline shift. No restricted diffusion to suggest acute ischemia. No susceptibility artifact to remote hemorrhage. Bilateral orbits are unremarkable. Normal appearing sella. Visualized paranasal sinuses are unremarkable. IMPRESSION: 1. No acute intracranial abnormality. 2. Moderate generalized cerebral volume loss. Chronic deep white matter small vessel ischemic changes. 3. No acute or chronic intracranial hemorrhage Dictated by Michael Bills MD @ 06/10/2025 2:31:11 PM Related Data Home Medications ?Medication ?Instructions ?Recorded ?Confirmed lisinopril 10 mg tablet 10 mg PO DAILY 06/04/23 05/06/25 omeprazole 20 mg capsule,delayed 20 mg PO BID 06/04/23 05/06/25 release sertraline 100 mg tablet 100 mg PO DAILY 06/04/23 05/06/25 trazodone 50 mg tablet 50 mg PO QPM 06/04/23 05/06/25 Previous Rx's ?Medication ?Instructions ?Recorded peg 3350-electrolytes 236 240 ml PO ONCE #4,000 mL 04/04/25 gram-22.74 gram-6.74 gram-5.86 gram solution (Golytely) Allergies Allergy/AdvReac Type Severity Reaction Status Date / Time No Known Drug Allergies Allergy Verified 06/23/25 21:15 Review of Systems Status of ROS: Reports: 6 or more systems reviewed and unremarkable except as noted in History and below [facility] Medical History Subconjunctival hemorrhage ?H11.30 - Conjunctival hemorrhage, unspecified eye (ICD-10) Social History Smoking Status: Never smoker How often do you have a drink containing alcohol: never AUDIT-C Alcohol total score: 0 Non-prescribed substance use: denies use Exam Narrative: Exam Narrative: Pleasant. Mildly anxious perhaps. Speaking fluidly. Cranial nerves 2-12 intact. No nystagmus generated. Heart in regular rate and rhythm without murmur rub or gallop. Lower extremities with mild pitting edema. Well-perfused peripherally. Lungs are clear. Const: Vital Signs, click to edit/add: Vital Signs - 24 hr 06/23/25 21:09 06/23/25 22:39 Temperature 98.5 F Pulse Rate [Right Pulse Oximeter] 82 70 Respiratory Rate 16 18 Blood Pressure [Ri ght Upper Arm] 201/74 H 150/97 H Pulse Oximetry 98 98 Oxygen Delivery Me thod Room Air Room Air Documenting provider has reviewed patient's vital signs: yes Course Vital Signs Vital signs: Initial Vital Signs Temperature 98.5 F 06/23/25 21:09 Temperature Source Temporal Artery Scan 06/23/25 21:09 Pulse Rate 82 06/23/25 21:09 Pulse Rhythm Regular 06/23/25 21:09 Pulse Strength 3+ Normal 06/23/25 21:09 Respiratory Rate 16 06/23/25 21:09 Blood Pressure 201/74 H 06/23/25 21:09 Blood Pressure Mean 116 H 06/23/25 21:09 Blood Pressure Position Sitting 06/23/25 21:09 Pulse Oximetry 98 06/23/25 21:09 Oxygen Delivery Method Room Air 06/23/25 21:09 Vital Signs Temperature 98.5 F 06/23/25 21:09 Pulse Rate 82 06/23/25 21:09 Respiratory Rate 16 06/23/25 21:09 Blood Pressure 201/74 H 06/23/25 21:09 Pulse Oximetry 98 06/23/25 21:09 Oxygen Delivery Method Room Air 06/23/25 21:09 Temperature 98.5 F 06/23/25 21:09 Pulse Rate 70 06/23/25 22:39 Respiratory Rate 18 06/23/25 22:39 Blood Pressure 150/97 H 06/23/25 22:39 Pulse Oximetry 98 06/23/25 22:39 Oxygen Delivery Method Room Air 06/23/25 22:39 Medical Decision Making MDM Narrative Medical decision making narrative: Definitely has elevated blood pressure but no significant new red flags I would say to suggest hypertensive emergency/urgency. It has been awhile since she has had some labs though and I would check this. Obtain new EKG. She did double her lisinopril dose today. Labs are reassuring. Repeat blood pressure to 150 systolic. Though just before departure again back up to 200 systolic. Elevating blood pressures likely multifactorial. Recommending outpatient follow-up. Discussed reassuring findings on her MRI as was unaware of those this time. See patient discharge plan for further discussion As I said your workup here today looked reassuring. See copies of your labs that you can take to follow-up. Also including here a copy of your EKG that you can add to your clinic file. I would message your primary care provider with information that you were seen in the emergency department as well as your blood pressure numbers/readings. Return for increasing and persistent headache, shortness of breath, chest pain. Medical Records Medical records reviewed: Yes I reviewed the patient's medical records Lab Data Lab results reviewed: Yes I reviewed the patient's lab results Labs: Lab Results 06/23/25 06/23/25 Range/Units 21:26 22:49 WBC 2.94 L (4.50-11.00) K/uL RBC 4.17 (4.00-5.20) m/uL Hgb 12.3 (12.0-16.0) gm/dL Hct 38.5 (33.0-51.0) % MCV 92 (80-100) fL MCH 30 (26-34) pg MCHC 32 (32-36) gm/dL RDW Coeff of [place] 13.0 (11.5-15.5) % Plt Count 99 L (140-440) K/uL Neut % (Auto) 52.2 (42.0-72.0) % Lymph % (Auto) 37.4 (20-44) % [place] % (Auto) 9.5 (0.0-11.0) % Eos % (Auto) 0.3 (0.0-7.0) % Baso % (Auto) 0.3 (0.0-3.0) % Neut # (Auto) 1.50 L (1.7-7.0) K/uL Lymph # (Auto) 1.10 (0.90-2.90) K/uL [place] # (Auto) 0.30 (0.00-0.90) K/UL Eos # (Auto) 0.00 (0.00-0.50) K/uL Baso # (Auto) 0.00 (0.00-0.30) K/uL Abs Immat Gran (auto) 0.00 (0.00-0.30) K/uL Imm/Tot Granulo (auto) 0.3 % Sodium 138 (135-149) mmol/L Potassium 4.0 (3.6-5.1) mmol/L Chloride 102 (96-114) mmol/L Carbon Dioxide 31 (20-32) mmol/L Anion Gap 5 L (7-15) mEq/L BUN 23 (7-30) mg/dL Creatinine 0.8 (0.5-1.5) mg/dL Estimated Creat Clear 37.45 Estimated GFR 74 ml/min Glucose 108 (60-115) mg/dL Calcium 9.0 (8.4-10.6) mg/dL NT-Pro-B Natriuret Pep 261 (See Note) pg/mL Urine Color Yellow (Yellow) Urine Appearance Clear (Clear) Urine pH 6.0 (5.0-8.5) Ur Specific [place] 1.015 (1.000-1.030) Urine Protein Negative (Negative) Urine Glucose (UA) Negative (Negative) Urine Ketones Negative (Negative) Urine Blood Negative (Negative) Urine Nitrite Negative (Negative) Urine Bilirubin Negative (Negative) Urine Urobilinogen 0.2 (0.2-1.0) Ur Leukocyte Esterase Negative (Negative) Urine RBC 0-2 (0-2) Urine WBC 0-2 (0-5) Ur Squamous Epith Cells None (None-Few) Urine Bacteria None (None) ECG Data Attestation: I personally reviewed and interpreted this ECG as follows: (Normal sinus rhythm. LVH?. Rate of 72) Discharge Plan Discharge Clinical Impression: High blood pressure Patient Disposition: Home w/ Parent or Adult Condition: Improved Additional Instructions: As I said your workup here today looked reassuring. See copies of your labs that you can take to follow-up. Also including here a copy of your EKG that you can add to your clinic file. I would message your primary care provider with information that you were seen in the emergency department as well as your blood pressure numbers/readings. Return for increasing and persistent headache, shortness of breath, chest pain. Prescriptions: No Action omeprazole 20 mg capsule,delayed release(DR/EC) 20 mg PO BID lisinopril 10 mg tablet 10 mg PO DAILY sertraline 100 mg tablet 100 mg PO DAILY trazodone 50 mg tablet 50 mg PO QPM peg 3350-electrolytes [Golytely] 236-22.74-6.74 -5.86 gram recon soln 240 ml PO ONCE Qty: 4000 0RF Rx Instructions: 4pm day prior to procedure. Drink 8oz glass every 15 minutes until 1/2 of solution is gone. 6 hours prior to procedure drink 8 oz glass every 15 minutes until remaining solution gone. Follow Up/Referrals: Bessie Braun DO [Primary Care Provider, Family Practice] Stand Alone Forms: [facility] Info Instructions Discharge Comment: d/c BP 205/93
[2025-06-23 21:36] LABS: Hematocrit* 38.5 % (33.0-51.0); Hemoglobin* 12.3 gm/dL (12.0-16.0); Immature Granulocytes Pct Auto 0.3 %; Lymphocytes Absolute Auto 1.10 K/uL (0.90-2.90); Mean Corpuscular HGB Conc 32 gm/dL (32-36); Mean Corpuscular Hemoglobin 30 pg (26-34); Mean Corpuscular Volume 92 fL (80-100); RDW Coefficient of Variation % 13.0 % (11.5-15.5); Red Blood Count* 4.17 m/uL (4.00-5.20); White Blood Count* 2.94 K/uL (4.50-11.00)
[2025-06-23 21:40] LABS: Immature Granulocytes Abs Auto 0.00 K/uL (0.00-0.30); Slide Review Reflex No
[2025-06-23 21:54] LABS: Chloride* 102 mmol/L (96-114); Potassium* 4.0 mmol/L (3.6-5.1); Sodium* 138 mmol/L (135-149)
[2025-06-23 21:57] LABS: Anion Gap 5 mEq/L (7-15); Blood Urea Nitrogen* 23 mg/dL (7-30); Calcium* 9.0 mg/dL (8.4-10.6); Carbon Dioxide* 31 mmol/L (20-32); Creatinine* 0.8 mg/dL (0.5-1.5); Est. Creatinine Clearance* 37.45; Estimated Glomerular Filt Rate 74 ml/min; Glucose* 108 mg/dL (60-115)
[2025-06-23 22:08] LABS: NT Pro B Type NatriureticPept* 261 pg/mL (See Note)
[2025-06-23 22:39] VITALS: BP 150/97; PULSE 70; RESP 18; O2SAT 98
[2025-06-23 22:54] LABS: Appearance Urine Clear (Clear)
== END 2025-06-23 23:27 | disposition home or self-care (01) ==
LOC: ED 23:23
PROVIDERS: Emergency Provider Family Medicine; PCP Family Medicine
DX: R51.9 Headache, unspecified (principal); I10 Essential (primary) hypertension; H53.8 Other visual disturbances; Z79.899 Other long term (current) drug therapy
CPT/HCPCS: 36415; 80048; 81001; 83880; 85025; 93005; 99283; 99284; 99285

== ENCOUNTER 2025-06-26 07:50 | Outpatient (CLI) | payer MEDICARE, SELFPAY ==
--- NOTE | 2025-06-26 08:15 | CRLHL7_ITS ---
For Patients: As a result of the Century Cures Act, medical imaging exams and procedure reports are released immediately into your electronic medical record. You may view this report before your referring provider. If you have questions, please contact your health care provider. INDICATION: Hypertension TECHNIQUE: Grayscale, color Doppler and spectral Doppler evaluation of the kidneys and renal arteries performed. COMPARISON: CT 11/10/2018 FINDINGS: BILATERAL RENAL ARTERY DUPLEX ULTRASOUND ABDOMINAL AORTA: Peak systolic velocity = 64 cm/s. No aortic aneurysm. RIGHT KIDNEY: 8.8 cm in length. There is no hydronephrosis. Peak systolic velocity = 105 cm/second. Note that only the distal artery visualized. The origin, proximal and mid right renal artery are obscured by bowel gas. Renal artery to aortic peak systolic velocity ratio = 1.6 Resistive indices: 0.8 Renal vein = patent LEFT KIDNEY: 9.1 cm in length. There is no hydronephrosis. Peak systolic velocity = 111 cm/second Renal artery to aortic peak systolic velocity ratio = 1.7 Resistive indices: 0.8 Renal vein = patent IMPRESSION: No evidence of significant renal artery stenosis within the visualized anatomy. The origin, proximal and mid right renal artery are not well visualized due to bowel gas. Dictated by Mickey Morales MD @ 06/26/2025 1:44:08 PM (Electronically Signed)
== END 2025-06-26 07:51 | disposition home or self-care (01) ==
LOC: US 07:50
PROVIDERS: PCP Family Medicine; Visit Provider Student in an Organized Health Care Education/Training Program
DX: I10 Essential (primary) hypertension (principal)
CPT/HCPCS: 76775; 93975